=== PATIENT | female | born 2000 | race Asian ===

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

== ENCOUNTER 2020-07-16 17:05 | Emergency (ER) | payer OTHER ==
[~2020-07-16] VITALS: Ht 162.6 cm; Wt 64.4 kg
[2020-07-16 18:13] VITALS: BP 113/83; TEMP 98.8
== END 2020-07-16 18:16 | disposition home or self-care (01) ==
LOC: ED 17:05
DX: J45.901 Unspecified asthma with (acute) exacerbation (principal)
CPT/HCPCS: 93005; 99282; J1020

== ENCOUNTER 2021-03-31 01:46 | Emergency (ER) | payer OTHER ==
[~2021-03-31] VITALS: Ht 162.6 cm; Wt 65.3 kg
[2021-03-31 02:29] LABS: PLATELET COUNT 170 K/uL (152-353)
[2021-03-31 02:39] LABS: POTASSIUM 3.3 mmol/L (3.6-5.2); SODIUM 140 mmol/L (136-145)
[2021-03-31 03:04] LABS: PARTIAL THROMBOPLASTIN TIME 27.9 SECONDS (24.5-33.6)
[2021-03-31 19:26] VITALS: TEMP 98.8
[2021-04-01 09:38] VITALS: BP 122/80
== END 2021-04-01 09:38 | disposition still patient (30) ==
LOC: ED 01:46
PROVIDERS: Hospitalist
DX: F32.89 Other specified depressive episodes (principal); R45.851 Suicidal ideations; T39.1X1A Poisoning by 4-Aminophenol derivatives, accidental (unintentional), initial encounter; R53.1 Weakness; Y93.89 Activity, other specified; Y92.89 Other specified places as the place of occurrence of the external cause; Z20.822 Contact with and (suspected) exposure to COVID-19
CPT/HCPCS: 36415; 80053; 80076; 80307; 80320; 80329; 81000; 81025; 83605; 85027; 85610; 85730; 87635; 93005; 96365; 96366; 96375; 99285; J0132; J2405; U0003

== ENCOUNTER 2022-01-20 15:21 | Emergency (ER) | payer OTHER ==
[~2022-01-20] VITALS: Ht 162.6 cm; Wt 65.3 kg
[2022-01-20 15:28] VITALS: BP 142/82; TEMP 98.8
[2022-01-20 17:29] LABS: PLATELET COUNT 189 K/uL (152-353)
[2022-01-20 17:42] LABS: POTASSIUM 3.7 mmol/L (3.6-5.2); SODIUM 139 mmol/L (136-145)
== END 2022-01-20 19:41 | disposition home or self-care (01) ==
LOC: ED 15:21
PROVIDERS: Family Medicine
DX: N92.5 Other specified irregular menstruation (principal)
CPT/HCPCS: 80053; 81000; 84702; 85027; 99283